=== PATIENT | male | born 1995 | race Caucasian/White ===

== ENCOUNTER 2020-08-19 12:24 | Inpatient (IN) | payer OTHER ==
[~2020-08-19] VITALS: Ht 172.7 cm; Wt 65.8 kg
[~2020-08-19 12:24] MED LIST: HYDROCODONE-APA1 TA1 PO; IBUPROFEN 800800 MG PO; NOHOMEMEDICATIONS; ROBAXIN500 MG PO; ZOFRAN4 MG PO
[2020-08-19 12:44] VITALS: BP 151/84
[2020-08-19 13:33] LABS: HEMATOCRIT 40.2 % (42.0-52.0); HEMOGLOBIN 13.7 gm/dL (14.0-18.0); MCH 28.2 pg (26.0-34.0); MCHC 34.1 g/dL (28.0-37.0); MCV 82.8 fL (80.0-100.0); NUCLEATED RBCS 0 /100WBC; PLATELET COUNT* 391 thou/uL (150-400); RBC 4.86 mil/uL (4.50-6.00); RDW-CV 12.4 % (10.5-14.5); WBC 14.3 thou/uL (4.0-11.0)
[2020-08-19 13:41] LABS: CALCIUM 8.8 mg/dL (8.5-10.1); CREATININE 0.9 mg/dL (0.6-1.3)
[2020-08-19 13:46] LABS: ALBUMIN 2.3 g/dL (3.4-5.0); TOTAL BILIRUBIN 0.7 mg/dL (<0.1-1.0); TOTAL PROTEIN 6.8 g/dL (6.4-8.2)
[2020-08-19 13:47] LABS: POTASSIUM 2.8 mmol/L (3.5-5.1)
[2020-08-19 14:03] LABS: ABSOLUTE LYMPHOCYTES 0.9 thou/uL (0.8-5.3); ABSOLUTE MONOCYTES 0.1 thou/uL (0.0-1.2); ABSOLUTE NEUTROPHILS 13.3 thou/uL (1.6-8.1); PLATELET ESTIMATE ADEQUATE
[2020-08-19 16:10] LABS: MAGNESIUM 2.2 mg/dL (1.8-2.4); PHOSPHORUS* 3.1 mg/dL (2.5-4.9)
[2020-08-19 16:38] VITALS: BP 124/78
[2020-08-19 20:42] VITALS: BP 145/65
[2020-08-20] VITALS: BP 125/86
[2020-08-20 04:00] VITALS: BP 122/84
[2020-08-20 05:11] LABS: HEMATOCRIT 37.1 % (42.0-52.0); HEMOGLOBIN 12.6 gm/dL (14.0-18.0); MCH 28.5 pg (26.0-34.0); MCV 83.7 fL (80.0-100.0); MPV 7.9 fl. (7.2-11.1); RBC 4.43 mil/uL (4.50-6.00); RDW-CV 12.5 % (10.5-14.5); WBC 11.8 thou/uL (4.0-11.0)
[2020-08-20 05:49] LABS: ALBUMIN 2.1 g/dL (3.4-5.0); ALKALINE PHOSPHATASE 101 U/L (46-116); ANION GAP 11 mmol/L (7-16); BUN 17 mg/dL (7-18); CALCIUM 9.1 mg/dL (8.5-10.1); CHLORIDE 104 mmol/L (98-107); CO2 23 mmol/L (21-32); CREATININE 0.8 mg/dL (0.6-1.3); GLUCOSE 113 mg/dL (70-99); MAGNESIUM 2.3 mg/dL (1.8-2.4); SGOT 26 U/L (15-37); SGPT 18 U/L (30-65); SODIUM 138 mmol/L (136-145); TOTAL BILIRUBIN 0.4 mg/dL (<0.1-1.0); TOTAL PROTEIN 6.8 g/dL (6.4-8.2); TROPONIN-I LEVEL <0.06 ng/mL (<0.06)
[2020-08-20 06:02] LABS: AMP/METHAMP Negative (Negative); BARBITURATES Negative (Negative); BENZODIAZEPINES Negative (Negative); COCAINE Negative (Negative); METHADONE Negative (Negative); OPIATES POSITIVE (Negative); PCP Negative (Negative); THC POSITIVE (Negative)
[2020-08-20 06:09] LABS: URINE BILIRUBIN NEGATIVE (Negative); URINE BLOOD NEGATIVE (Negative); URINE CLARITY CLEAR; URINE COLOR YELLOW; URINE GLUCOSE-RANDOM NEGATIVE (Negative); URINE KETONES 2+ (Negative); URINE LEUKOCYTES-REFLEX NEGATIVE (Negative); URINE NITRITE-REFLEX NEGATIVE (Negative); URINE PROTEIN 2+ (Negative); URINE UROBILINOGEN 0.2 E.U./dl (0.2-1.0)
[2020-08-20 06:18] LABS: BACTERIA-REFLEX >30 Many /HPF (None Seen); COARSE GRANULAR CASTS 0-3 Few /LPF (None Seen); FINE GRANULAR CASTS 0-3 Few /LPF (None Seen); MUCUS >6 Heavy strn/LPF (None Seen); SQUAMOUS 0-3 Few /LPF (0-3); URINE RBC 3-10 Few /HPF (0-2); URINE WBC-REFLEX 6-15 Few /HPF (0-5); WBC CLUMPS Few (None Seen)
[2020-08-20 06:19] LABS: CRYSTALS None Seen /LPF (None Seen)
[2020-08-20 08:00] VITALS: BP 131/81
[2020-08-20 13:09] VITALS: BP 127/78
[2020-08-20 19:31] VITALS: BP 126/88
[2020-08-20 21:00] VITALS: BP 144/100
[2020-08-21] VITALS: BP 131/88
[2020-08-21 04:00] VITALS: BP 138/87
[2020-08-21 05:01] LABS: ABSOLUTE LYMPHOCYTES 0.8 thou/uL (0.8-5.3); ABSOLUTE MONOCYTES 0.4 thou/uL (0.0-1.2); ABSOLUTE NEUTROPHILS 14.7 thou/uL (1.6-8.1); BASOPHILS 0.1 %; HEMATOCRIT 35.5 % (42.0-52.0); HEMOGLOBIN 11.9 gm/dL (14.0-18.0); LYMPHOCYTES 5.3 %; MCHC 33.6 g/dL (28.0-37.0); MCV 83.5 fL (80.0-100.0); MONOCYTES 2.7 %; MPV 7.7 fl. (7.2-11.1); NUCLEATED RBCS 0 /100WBC; PLATELET COUNT* 473 thou/uL (150-400); POLYS 91.9 %; RBC 4.25 mil/uL (4.50-6.00); RDW-CV 12.5 % (10.5-14.5)
[2020-08-21 05:32] LABS: ALBUMIN 2.1 g/dL (3.4-5.0); CALCIUM 8.6 mg/dL (8.5-10.1); CREATININE 0.8 mg/dL (0.6-1.3); MAGNESIUM 2.4 mg/dL (1.8-2.4); TOTAL BILIRUBIN 0.4 mg/dL (<0.1-1.0); TOTAL PROTEIN 6.5 g/dL (6.4-8.2)
[2020-08-21 08:01] VITALS: BP 135/94
[2020-08-21 17:00] VITALS: BP 131/76
[2020-08-21 18:31] LABS: INFLUENZA A ANTIGEN Negative (Negative); INFLUENZA B ANTIGEN Negative (Negative)
[2020-08-21 20:00] VITALS: BP 137/92
[2020-08-22 04:49] LABS: HEMOGLOBIN 11.4 gm/dL (14.0-18.0); MCH 28.1 pg (26.0-34.0); MCHC 33.6 g/dL (28.0-37.0); MCV 83.6 fL (80.0-100.0); MPV 7.1 fl. (7.2-11.1); RBC 4.06 mil/uL (4.50-6.00); RDW-CV 12.4 % (10.5-14.5); WBC 14.3 thou/uL (4.0-11.0)
[2020-08-22 04:57] LABS: ALBUMIN 1.9 g/dL (3.4-5.0); CREATININE 0.8 mg/dL (0.6-1.3); POTASSIUM 3.4 mmol/L (3.5-5.1); TOTAL BILIRUBIN 0.4 mg/dL (<0.1-1.0); TOTAL PROTEIN 5.4 g/dL (6.4-8.2)
[2020-08-22 10:38] VITALS: BP 141/94
--- NOTE | 2020-08-22 14:28 | 2DMMODE ---
[place] [address] 2 D/M-MODE ECHOCARDIOGRAM Name: KINGYRIS Sridhar Room: [address] [place]#: [id number] Admission: 08/19/20 Attend Phys: Chance Chaudhry Discharge: Date of : [birth year] Date of Service: 08/22/20 1428 Report #: [id number] THIS REPORT FOR: cc: Tata Ash,Tata Benton,Luis Hernández MD MERGED WITH [facility] ~ APPROVED REPORT Study performed: 08/22/2020 11:15:18 EXAM: Comprehensive 2D, Doppler, and color-flow Echocardiogram Patient Location: In-Patient Room #: [facility] Status: routine BSA: 1.78 HR: 86 bpm BP: 137/92 mmHg Rhythm: NSR Other Information Study Quality: Good Indications Dyspnea 2D Dimensions IVSd: 11.04 (7-11mm) LVOT Diam: 20.54 (18-24mm) LVDd: 42.51 mm PWd: 9.91 (7-11mm) Ascending Ao: 27.17 (22-36mm) LVDs: 27.80 (25-40mm) Aortic Root: 28.57 mm Volumes Left Atrial Volume (Systole) LA ESV Index: 34.40 mL/m2 Aortic Valve AoV Peak Damaso.: 1.50 m/s AO Peak Gr.: 9.04 mmHg LVOT Max P.26 mmHg AO Mean Gr.: 5.04 mmHg LVOT Mean P.36 mmHg LVOT Max V: 1.52 m/s AO V2 VTI: 25.01 cm LVOT Mean V: 0.95 m/s SYLVIE (VTI): 3.50 cm2 LVOT V1 VTI: 26.37 [place] [address] 2 D/M-MODE ECHOCARDIOGRAM Name: YRIS JAIN Room: [address] IN [facility]#: [id number] Admission: 08/19/20 Attend Phys: Chance Chaudhry Discharge: Date of : [birth year] Date of Service: 08/22/20 1428 Report #: [id number] Mitral Valve E/A Ratio: 2.29 MV Decel. Time: 269.35 ms MV E Max Damaso.: 1.05 m/s MV PHT: 78.11 ms MVA (PHT): 2.82 cm2 TDI E/Lateral E': 5.53 E/Medial E': 7.50 Medial E' Damaso.: 0.14 m/s Lateral E' Damaso.: 0.19 m/s Pulmonary Valve PV Peak Damaso.: 1.82 m/s PV Peak Gr.: 13.31 mmHg Tricuspid Valve RAP Estimate: 5.00 mmHg TR Peak Gr.: 30.70 mmHg RVSP: 35.00 mmHg PA Pressure: 35.00 mmHg Left Ventricle The left ventricle is normal size. There is normal LV segmental wall motion. There is normal left ventricular wall thickness. Left ventricular systolic function is normal. The left ventricular ejection fraction is within the normal range. LVEF is 60-65%. The left ventricular diastolic function is normal. Right Ventricle The right ventricle is normal size. The right ventricular systolic function is normal. Atria The left atrium size is normal. The right atrium size is normal. Aortic Valve The aortic valve is normal in structure. No aortic regurgitation is present. There is no aortic valvular stenosis. Mitral Valve The mitral valve is normal in structure. Mild mitral regurgitation. No evidence of mitral valve stenosis. Tricuspid Valve The tricuspid valve is normal in structure. Mild tricuspid regurgitation. [place] [address] 2 D/M-MODE ECHOCARDIOGRAM Name: YRIS JAIN Room: [address]#: [id number] Admission: 08/19/20 Attend Phys: Chance Chaudhry Discharge: Date of : [birth year] Date of Service: 08/22/20 1428 Report #: [id number] Pulmonic Valve The pulmonary valve is normal in structure. Mild pulmonic regurgitation. Great Vessels The aortic root is normal in size. IVC is normal in size and collapses >50% with inspiration. Pericardium There is no pericardial effusion. <Conclusion> The left ventricle is normal size. There is normal left ventricular wall thickness. Left ventricular systolic function is normal. The left ventricular ejection fraction is within the normal range. LVEF is 60-65%. The left ventricular diastolic function is normal. The right ventricle is normal size. The left atrium size is normal. The aortic valve is normal in structure. The mitral valve is normal in structure. Mild mitral regurgitation. The tricuspid valve is normal in structure. Mild tricuspid regurgitation. Mild pulmonary hypertension. IVC is normal in size and collapses >50% with inspiration. There is no pericardial effusion. There is normal LV segmental wall motion. <ELECTRONICALLY SIGNED> By: Luis Meyer MD, FACC 08/22/20 1428 1428 1428 Luis Meyer MD, FACC /INF
[2020-08-22 17:07] VITALS: BP 139/91
[2020-08-22 19:45] VITALS: BP 130/83
[2020-08-23 02:06] LABS: MYCOPLASMA PNEUMONIA IgG 537 U/mL (0-99); MYCOPLASMA PNEUMONIA IgM <770 U/mL (0-769)
[2020-08-23 05:57] LABS: HEMOGLOBIN 12.3 gm/dL (14.0-18.0); MCH 27.9 pg (26.0-34.0); MCHC 34.2 g/dL (28.0-37.0); MCV 81.6 fL (80.0-100.0); MPV 7.4 fl. (7.2-11.1); RBC 4.41 mil/uL (4.50-6.00); RDW-CV 12.3 % (10.5-14.5)
[2020-08-23 06:25] LABS: ALBUMIN 2.1 g/dL (3.4-5.0); CALCIUM 8.7 mg/dL (8.5-10.1); POTASSIUM 3.7 mmol/L (3.5-5.1); TOTAL BILIRUBIN 0.5 mg/dL (<0.1-1.0); TOTAL PROTEIN 5.9 g/dL (6.4-8.2)
[2020-08-23 07:15] VITALS: BP 146/89
[2020-08-23 16:00] VITALS: BP 114/75
[2020-08-23 19:40] VITALS: BP 143/91
[2020-08-24 06:18] LABS: ABSOLUTE EOSINOPHILS 0.2 thou/uL (0.0-0.7); ABSOLUTE MONOCYTES 0.3 thou/uL (0.0-1.2); ABSOLUTE NEUTROPHILS 13.1 thou/uL (1.6-8.1); BASOPHILS 0.2 %; EOSINOPHILS 1.2 %; HEMATOCRIT 37.1 % (42.0-52.0); HEMOGLOBIN 12.9 gm/dL (14.0-18.0); LYMPHOCYTES 12.8 %; MCH 28.8 pg (26.0-34.0); MCHC 34.9 g/dL (28.0-37.0); MCV 82.6 fL (80.0-100.0); MPV 7.6 fl. (7.2-11.1); NUCLEATED RBCS 0 /100WBC; PLATELET COUNT* 629 thou/uL (150-400); POLYS 83.8 %; RBC 4.49 mil/uL (4.50-6.00); RDW-CV 12.1 % (10.5-14.5); WBC 15.6 thou/uL (4.0-11.0)
[2020-08-24 06:32] LABS: ALBUMIN 2.3 g/dL (3.4-5.0); CALCIUM 8.6 mg/dL (8.5-10.1); CREATININE 0.8 mg/dL (0.6-1.3); MAGNESIUM 2.4 mg/dL (1.8-2.4); POTASSIUM 3.4 mmol/L (3.5-5.1); TOTAL BILIRUBIN 0.5 mg/dL (<0.1-1.0); TOTAL PROTEIN 6.7 g/dL (6.4-8.2)
[2020-08-24 07:05] VITALS: BP 135/86
[2020-08-24] MEDS ORDERED: CEFDINIR300 MG PO (08:07)
[2020-08-24] MEDS ORDERED: LACTOBACILLUS1 EACH PO (08:07)
[2020-08-24] MEDS ORDERED: TESSALON PERLE100 MG PO (08:07)
[2020-08-24] MEDS ORDERED: VENTOLIN HFA INH8 GM INH (08:07)
[2020-08-24] MEDS ORDERED: AZITHROMYCIN500 MG PO (08:07)
[2020-08-24 08:17] VITALS: BP 135/86
== END 2020-08-24 12:37 | disposition home or self-care (01) | DRG 871 ==
LOC: M.ERS 12:24 → M.3W 14:07 → M.TBA-ER 14:07 → M.ORTHSURG 14:07 → M.3W 08-21 10:10
PROVIDERS: Internal Medicine; Internal Medicine Critical Care Medicine; Physician Assistant; ADMIT Family Medicine; ATTEND Family Medicine
DX: A41.89 Other specified sepsis (principal); J96.01 Acute respiratory failure with hypoxia; J15.9 Unspecified bacterial pneumonia; F12.90 Cannabis use, unspecified, uncomplicated; E87.6 Hypokalemia; Z20.828 Contact with and (suspected) exposure to other viral communicable diseases

== ENCOUNTER 2021-04-13 15:48 | Emergency (ER) | payer OTHER ==
[~2021-04-13] VITALS: Ht 175.3 cm; Wt 63.5 kg
[~2021-04-13 15:48] MED LIST changes: +AZITHROMYCIN500 MG PO; +CEFDINIR300 MG PO; +LACTOBACILLUS1 EACH PO; +TESSALON PERLE100 MG PO; +VENTOLIN HFA INH8 GM INH
[2021-04-13] MEDS ORDERED: VIBRAMYCIN 100100 MG PO (16:05)
[2021-04-13 18:18] LABS: URINE BILIRUBIN NEGATIVE (Negative); URINE BLOOD NEGATIVE (Negative); URINE CLARITY CLEAR; URINE COLOR YELLOW; URINE GLUCOSE-RANDOM NEGATIVE (Negative); URINE KETONES NEGATIVE (Negative); URINE LEUKOCYTES-REFLEX NEGATIVE (Negative); URINE NITRITE-REFLEX NEGATIVE (Negative); URINE PROTEIN NEGATIVE (Negative); URINE UROBILINOGEN 0.2 E.U./dl (0.2-1.0)
[2021-04-13 18:24] LABS: ABSOLUTE BASOPHILS 0.1 thou/uL (0.0-0.2); ABSOLUTE EOSINOPHILS 0.3 thou/uL (0.0-0.7); ABSOLUTE LYMPHOCYTES 2.9 thou/uL (0.8-5.3); ABSOLUTE MONOCYTES 0.5 thou/uL (0.0-1.2); ABSOLUTE NEUTROPHILS 4.3 thou/uL (1.6-8.1); EOSINOPHILS 4.1 %; HEMATOCRIT 46.6 % (42.0-52.0); HEMOGLOBIN 16.1 gm/dL (14.0-18.0); LYMPHOCYTES 36.1 %; MCH 29.1 pg (26.0-34.0); MCHC 34.5 g/dL (28.0-37.0); MCV 84.3 fL (80.0-100.0); MONOCYTES 6.4 %; MPV 9.7 fl. (7.2-11.1); NUCLEATED RBCS 0 /100WBC; PLATELET COUNT* 217 thou/uL (150-400); POLYS 52.4 %; RBC 5.53 mil/uL (4.50-6.00); RDW-CV 12.5 % (10.5-14.5); WBC 8.1 thou/uL (4.0-11.0)
[2021-04-13 18:37] LABS: CALCIUM 8.9 mg/dL (8.5-10.1); CREATININE 0.9 mg/dL (0.6-1.3); POTASSIUM 4.1 mmol/L (3.5-5.1)
[2021-04-13 18:42] LABS: ALBUMIN 4.6 g/dL (3.4-5.0); TOTAL BILIRUBIN 0.3 mg/dL (<0.1-1.0); TOTAL PROTEIN 7.5 g/dL (6.4-8.2)
[2021-04-13] MEDS ORDERED: CIPRO500 M1 PO (20:27)
[2021-04-13] MEDS ORDERED: NORCO5 PO ×2 (20:32→21:43)
[2021-04-13 20:58] VITALS: BP 145/65
== END 2021-04-13 22:01 | disposition home or self-care (01) ==
LOC: M.ERS 15:48
PROVIDERS: Emergency Medicine Emergency Medical Services; Physician Assistant
DX: N45.1 Epididymitis (principal); Z79.82 Long term (current) use of aspirin

== ENCOUNTER 2021-09-14 23:13 | Emergency (ER) | payer OTHER ==
[~2021-09-14] VITALS: Ht 172.7 cm; Wt 65.8 kg
[~2021-09-14 23:13] MED LIST changes: +CIPRO500 M1 PO; +NORCO5 PO; +VIBRAMYCIN 100100 MG PO
[2021-09-15 00:20] LABS: INFLUENZA A ANTIGEN Negative (Negative); INFLUENZA B ANTIGEN Negative (Negative)
[2021-09-15 01:17] VITALS: BP 110/70
--- NOTE | 2021-09-15 11:19 | EKG ---
[place] [address] ELECTROCARDIOGRAM REPORT Name: DARON JAINEMY Sridhar Room: [facility]#: [id number] Admission: 09/14/21 Attend Phys: Discharge: 09/15/21 Date of : [birth year] Date of Service: 09/14/21 2323 Report #: [id number] THIS REPORT FOR: //name// [facility] ED Test Date: 2021-09-14 Test Time: 23:23:32 Pat Name: YRIS JAIN Department: Room: Gender: [employer]: [place] : 1995 Requested By: Julienne Marino Order Number: [id number] MD: Ray Naranjo Measurements Intervals [place] Rate: 73 P: 71 DC: 127 QRS: 73 QRSD: 91 T: 60 QT: 372 QTc: 410 Interpretive Statements Sinus rhythm LVH by voltage No previous ECG available for comparison Electronically Signed On 09-15-2021 11:19:19 [employer] by Ray Naranjo [email or web address] <ELECTRONICALLY SIGNED> By: Ray Naranjo MD, [facility] 09/15/21 1119 22 Ray Naranjo MD, FACC /EPI
== END 2021-09-15 01:19 | disposition home or self-care (01) ==
LOC: M.ERS 23:13
PROVIDERS: Emergency Medicine
DX: U07.1 COVID-19 (principal); Z90.49 Acquired absence of other specified parts of digestive tract; Z91.02 Food additives allergy status